=== PATIENT | male | born 2000 | race Caucasian/White ===

== ENCOUNTER 2022-08-02 03:35 | Day surgery (SDC) | payer OTHER, SELFPAY ==
[2022-08-02] VITALS (25 sets, daily range): BP systolic 113–160; BP diastolic 62–94; PULSE 68–113; RESP 16–20; TEMP 36.7–37.4; O2SAT 96–100; BMI 25.8
--- NOTE | 2022-08-02 04:02 | CRLHL7_ITS ---
For Patients: As a result of the Century Cures Act, medical imaging exams and procedure reports are released immediately into your electronic medical record. You may view this report before your referring provider. If you have questions, please contact your health care provider. INDICATION: Right lower quadrant abdominal pain. COMPARISON: None TECHNIQUE: CT examination of the abdomen and pelvis was performed following the uneventful intravenous administration of 89 cc of Isovue 370. Thin section axial images were obtained from the lung bases through the pubic symphysis. Oral contrast was not administered. Please note that all CT scans at this facility use dose modulation, iterative reconstruction, and/or weight-based dosing when appropriate to reduce radiation dose to as low as reasonably achievable. FINDINGS: LUNG BASES: There is a 3.5 millimeter nodule at the right lung base. A nodule of this size does not generally require follow-up in low risk individuals.The heart size is normal at the lung bases. LIVER/BILIARY SYSTEM:The liver is normal in size and configuration. There is no focal mass and there is no intra- or extra hepatic biliary ductal dilatation.The gall bladder appears normal. ADRENALS: Normal KIDNEYS, URETERS and BLADDER:A few scattered bilateral low-density lesions are noted likely small cysts. No hydronephrosis or hydroureter. The bladder appears normal. SPLEEN:Normal appearance. PANCREAS: Appears normal. RETROPERITONEUM and MESENTERY: There is no mass, adenopathy or aortic aneurysm. GASTROINTESTINAL SYSTEM: Dilated inflamed appendix containing an appendicolith with surrounding inflammatory change and moderate fluid in the pelvis. No collection. No free air. PELVIS: No mass or adenopathy.. OSSEOUS STRUCTURES and ABDOMINAL WALL: There is an age-appropriate appearance of the osseous structures.No significant abdominal wall defect. IMPRESSION: Acute uncomplicated appendicitis. The appendix is dilated and inflamed containing an appendicolith with surrounding inflammatory change and moderate free fluid in the pelvis. No collection or free air. Please note that all CT scans at this facility use dose modulation, iterative reconstruction, and/or weight-based dosing when appropriate to reduce radiation dose to as low as reasonably achievable. Dictated by Jewel Russell MD @ 08/02/2022 4:38:28 AM (Electronically Signed)
--- NOTE | 2022-08-02 04:05 | ED_ITS ---
HPI - General Adult General Chief complaint: Abdominal Pain Stated complaint: Right Side Abdominal Pain Time Seen by Provider: 08/02/22 03:41 Source: patient Mode of arrival: ambulatory History of Present Illness HPI narrative: 22-year-old male with no significant prior medical history presents with a 2 hour history of abdominal pain in the right lower quadrant. Describes pain as constant and achy, improves if he gets up and walks around, worse if he is attempting to fall asleep and un distracted. He states that he looked up signs and symptoms of appendicitis and does feel like the pain is worse when he presses, indicating what he read as guarding. He is mildly nauseated but there has been no vomiting. Last bowel movement was about 10 hours ago, small but no blood. No diarrhea. No abdominal trauma. No dysuria or symptoms of STD. Has not tried taking any medications or any other interventions to help with his symptoms. Has felt a little bloated yesterday but the pain did not start until a few hours ago as stated. Prior history of similar symptoms. Last meal was a bagel at approximately 6:00 p.m.. Past medical history he reports is benign, no major long-term health problems. Denies any use of prescription medications, no allergies. Socially denies intoxication. Surgically he has tolerated a prior tonsillectomy and wisdom tooth extraction without difficulty. Denies family history of anesthesia complications. ROS is notable only for the abdominal symptoms as above, otherwise denies times 15 systems. Related Data Home Medications Medication Instructions Recorded Confirmed No Known Home Medications 08/02/22 08/02/22 Previous Rx's Medication Instructions Recorded hydrocodone 5 mg-acetaminophen 325 1 tab PO Q6H PRN Pain #10 tabs 08/02/22 mg tablet Allergies Allergy/AdvReac Type Severity Reaction Status Date / Time No Known Drug Allergies Allergy Verified 08/02/22 04:08 [facility] Medical History (Updated 08/02/22 @ 08:23 by Claire Hitchcock MD) No significant past medical history Surgical History (Updated 08/02/22 @ 08:17 by Claire Hitchcock MD) H/O wisdom tooth extraction S/P tonsillectomy Social History (Updated 08/02/22 @ 08:18 by Claire Hitchcock MD) Narrative: The patient is a full-time student. He is a senior. He is studying psychology. His family is from [place]. He drinks alcohol occasionally Smoking Status: Never smoker Do you use any of these nicotine containing products: None Second hand tobacco smoke exposure: No How often do you have a drink containing alcohol: never How often do you have six or more drinks on one occasion: Never AUDIT-C Alcohol total score: 0 Non-prescribed substance use: marijuana (any form) Exam Const: Vital Signs, click to edit/add: Vital Signs - 24 hr 08/02/22 03:41 08/02/22 03:35 08/02/22 04:13 Temperature 98.0 F Pulse Rate 92 Pulse Rate [Right Pulse Oximeter] 81 Respiratory Rate 18 18 Blood Pressure 138/70 Blood Pressure [Ri ght Upper Arm] 125/76 Pulse Oximetry 99 99 100 Oxygen Delivery Me thod Room Air 08/02/22 04:32 08/02/22 05:02 08/02/22 06:02 Temperature Pulse Rate 89 99 92 Pulse Rate [Right Pulse Oximeter] Respiratory Rate 18 18 18 Blood Pressure 145/89 H 160/94 H 131/80 Blood Pressure [Ri ght Upper Arm] Pulse Oximetry 98 100 99 Oxygen Delivery Me thod Documenting provider has reviewed patient's vital signs: yes Common normals: no apparent distress General appearance: cooperative Other: Mildly anxious but good historian. HENMT: Common normals: normocephalic Head and scalp: normocephalic Mouth: oral and palatal mucosa normal Throat: posterior oropharynx normal Eye: Common normals: EOMs intact bilaterally General eye: normal appearance of both eyes Neck & C-Spine: Common normals: full ROM and no lymphadenopathy Resp: Common normals: normal respiratory effort, no use of accessory muscles and clear to auscultation bilaterally Effort & inspection: able to speak in complete sentences Auscultation: clear to auscultation bilaterally Cardio: Common normals: regular rate, regular rhythm, S1 normal heart sound, S 2 normal heart sound, no murmurs and peripheral pulses 2+ throughout Rate: regular rate Rhythm: regular rhythm Heart sounds: S1 normal and S2 normal Peripheral pulses: pulses 2+ throughout GI: Common normals: Normal to inspection, nondistended, normoactive bowel sounds present and no hepatosplenomegaly Palpation: no hepatosplenomegaly Other: Soft. Mildly tender to the right lower quadrant only. I do not appreciate rebound tenderness or guarding on initial exam Extremity: Common normals: normal to inspection, normal capillary refill and no pedal edema Neuro: Speech: speech normal Motor exam: strength 5/5 throughout, no tremor noted and no movement abnormalities noted Psych: Attitude: engaged Activity/motor behavior: appropriate eye contact Insight: insight good Judgement: judgment good Skin: Common normals: no rashes or lesions noted General skin exam: no rashes or lesions noted Course Vital Signs Vital signs: Initial Vital Signs Pulse Oximetry 99 08/02/22 03:35 Vital Signs Pulse Oximetry 99 08/02/22 03:35 Temperature 99.3 F 08/02/22 11:42 Pulse Rate 69 08/02/22 11:42 Respiratory Rate 16 08/02/22 11:42 Blood Pressure 122/62 08/02/22 11:42 Pulse Oximetry 98 08/02/22 11:42 Oxygen Delivery Method 08/02/22 11:42 Medical Decision Making MDM Narrative Medical decision making narrative: Differential diagnosis including gastritis, colitis, appendicitis, gas and bloating, irritable bowel. In concern is for appendicitis. Urinalysis recommended, CBC, lipase, comprehensive metabolic panel and CRP. Recommend of the abdomen and pelvis. Will place IV, administer 4 mg of Zofran and 10 mg of oral oxycodone to see if this improves pain. Await CT findings. No initial signs of sepsis,, fever or severe infection. Update: CT clearly showing acute, confirmed with radiology report. Spoke with surgical team, they did not recommend antibiotics. I will begin fluids, NPO, p.r.n. Dilaudid is ordered. Await surgical plan and recommendations, anticipate surgery later this morning. Patient is determined to be low risk for anesthesia and is medically cleared for surgery at this time. No additional perioperative recommendations. Lab Data Lab results reviewed: Yes I reviewed the patient's lab results Labs: Lab Results 08/02/22 08/02/22 08/02/22 Range/Units 04:02 04:11 04:12 WBC 9.68 (4.50-11.00) K/uL RBC 5.02 (4.30-5.90) m/uL Hgb 15.5 (13.5-17.5) gm/dL Hct 43.6 (37.0-53.0) % MCV 87 (80-100) fL MCH 31 (26-34) pg MCHC 36 (32-36) gm/dL RDW Coeff of Skylar 11.8 (11.5-15.5) % Plt Count 218 (140-440) K/uL Neut % (Auto) 72.9 H (42.0-72.0) % Lymph % (Auto) 18.9 L (20-44) % [place] % (Auto) 6.8 (0.0-11.0) % Eos % (Auto) 1.2 (0.0-7.0) % Baso % (Auto) 0.1 (0.0-3.0) % Neut # (Auto) 7.10 H (1.7-7.0) K/uL Lymph # (Auto) 1.80 (0.90-2.90) K/uL [place] # (Auto) 0.70 (0.00-0.90) K/UL Eos # (Auto) 0.12 (0.00-0.50) K/uL Baso # (Auto) 0.01 (0.00-0.30) K/uL Sodium 141 (135-149) mmol/L Potassium 3.5 L (3.6-5.1) mmol/L Chloride 109 (96-114) mmol/L Carbon Dioxide 24 (20-32) mmol/L BUN 16 (5-24) mg/dL Creatinine 0.8 (0.5-1.5) mg/dL Estimated Creat Clear 149.55 Estimated GFR 128 ml/min Glucose 108 (60-115) mg/dL Calcium 9.8 (8.4-10.6) mg/dL Total Bilirubin 0.8 (0.1-1.5) mg/dL AST 24 (12-35) U/L ALT 24 (4-50) U/L Alkaline Phosphatase 57 (40-150) U/L C-Reactive Protein 2.1 H (0.5-1.0) mg/dL Total Protein 7.7 (6.0-8.3) g/dL Albumin 4.9 (3.3-5.0) g/dL Lipase (23-300) U/L Urine Color Yellow (Yellow) Urine Appearance Clear (Clear) Urine pH 8.5 (5.0-8.5) Ur Specific [place] 1.020 (1.000-1.030) Urine Protein Negative (Negative) Urine Glucose (UA) Negative (Negative) Urine Ketones Negative (Negative) Urine Blood Negative (Negative) Urine Nitrite Negative (Negative) Urine Bilirubin Negative (Negative) Urine Urobilinogen 1.0 (0.2-1.0) Ur Leukocyte Esterase Negative (Negative) SARS-CoV-2 (PCR) (Negative) 08/02/22 08/02/22 Range/Units 04:12 04:13 WBC (4.50-11.00) K/uL RBC (4.30-5.90) m/uL Hgb (13.5-17.5) gm/dL Hct (37.0-53.0) % MCV (80-100) fL MCH (26-34) pg MCHC (32-36) gm/dL RDW Coeff of Skylar (11.5-15.5) % Plt Count (140-440) K/uL Neut % (Auto) (42.0-72.0) % Lymph % (Auto) (20-44) % [place] % (Auto) (0.0-11.0) % Eos % (Auto) (0.0-7.0) % Baso % (Auto) (0.0-3.0) % Neut # (Auto) (1.7-7.0) K/uL Lymph # (Auto) (0.90-2.90) K/uL [place] # (Auto) (0.00-0.90) K/UL Eos # (Auto) (0.00-0.50) K/uL Baso # (Auto) (0.00-0.30) K/uL Sodium (135-149) mmol/L Potassium (3.6-5.1) mmol/L Chloride (96-114) mmol/L Carbon Dioxide (20-32) mmol/L BUN (5-24) mg/dL Creatinine (0.5-1.5) mg/dL Estimated Creat Clear Estimated GFR ml/min Glucose (60-115) mg/dL Calcium (8.4-10.6) mg/dL Total Bilirubin (0.1-1.5) mg/dL AST (12-35) U/L ALT (4-50) U/L Alkaline Phosphatase (40-150) U/L C-Reactive Protein (0.5-1.0) mg/dL Total Protein (6.0-8.3) g/dL Albumin (3.3-5.0) g/dL Lipase 77 (23-300) U/L Urine Color (Yellow) Urine Appearance (Clear) Urine pH (5.0-8.5) Ur Specific [place] (1.000-1.030) Urine Protein (Negative) Urine Glucose (UA) (Negative) Urine Ketones (Negative) Urine Blood (Negative) Urine Nitrite (Negative) Urine Bilirubin (Negative) Urine Urobilinogen (0.2-1.0) Ur Leukocyte Esterase (Negative) SARS-CoV-2 (PCR) Negative SARS-CoV-2 (Negative) Imaging Data CT scan - abdomen: My impression: Appendicitis Radiologist's impression: IMPRESSION: Acute uncomplicated appendicitis. The appendix is dilated and inflamed containing an appendicolith with surrounding inflammatory change and moderate free fluid in the pelvis. No collection or free air. Discharge Plan Discharge Activity Level: No strenuous activity Activity Detail: No lifting more than 20 lb for 2 weeks Discharge Diet: Regular
[2022-08-02] MEDS: ONDANSETRON 2 MG/ML inj 4 MG IVP (04:10)
[2022-08-02] MEDS: OXYCODONE 5 MG TABLET 10 MG PO (04:11)
[2022-08-02 04:18] LABS: Basophils Absolute Auto 0.01 K/uL (0.00-0.30); Basophils Percent Auto 0.1 % (0.0-3.0); Eosinophils Absolute Auto 0.12 K/uL (0.00-0.50); Eosinophils Percent Auto 1.2 % (0.0-7.0); Hematocrit 43.6 % (37.0-53.0); Hemoglobin* 15.5 gm/dL (13.5-17.5); Immature Granulocytes Abs Auto 0.01 K/uL (0.00-0.30); Immature Granulocytes Pct Auto 0.1 %; Lymphocytes Percent Auto 18.9 % (20-44); Mean Corpuscular HGB Conc 36 gm/dL (32-36); Mean Corpuscular Hemoglobin 31 pg (26-34); Mean Corpuscular Volume 87 fL (80-100); Monocytes Percent Auto 6.8 % (0.0-11.0); Neutrophils Percent Auto 72.9 % (42.0-72.0); Platelet Count* 218 K/uL (140-440); RDW Coefficient of Variation % 11.8 % (11.5-15.5); Red Blood Count 5.02 m/uL (4.30-5.90); White Blood Count* 9.68 K/uL (4.50-11.00)
[2022-08-02 04:20] LABS: Slide Review Reflex No
[2022-08-02 04:30] LABS: Appearance Urine Clear (Clear); Bilirubin Urine Negative (Negative); Blood Urine Negative (Negative); Color Urine Yellow (Yellow); Glucose Urine Negative (Negative); Ketones Urine Negative (Negative); Leukocyte Esterase Urine Negative (Negative); Nitrite Urine Negative (Negative); Protein Urine Negative (Negative); pH Urine 8.5 (5.0-8.5)
[2022-08-02 04:34] LABS: Albumin* 4.9 g/dL (3.3-5.0); Chloride* 109 mmol/L (96-114); Sodium* 141 mmol/L (135-149)
[2022-08-02 04:35] LABS: Potassium* 3.5 mmol/L (3.6-5.1)
[2022-08-02 04:36] LABS: Lipase* 77 U/L (23-300)
[2022-08-02 04:37] LABS: Aspartate Amino Transferase* 24 U/L (12-35); Bilirubin Total* 0.8 mg/dL (0.1-1.5); Carbon Dioxide* 24 mmol/L (20-32); Creatinine* 0.8 mg/dL (0.5-1.5); Est. Creatinine Clearance* 149.55; Estimated Glomerular Filt Rate 128 ml/min
[2022-08-02 04:38] LABS: Alanine Aminotransferase* 24 U/L (4-50); Alkaline Phosphatase* 57 U/L (40-150); Blood Urea Nitrogen* 16 mg/dL (5-24); Calcium* 9.8 mg/dL (8.4-10.6); Glucose* 108 mg/dL (60-115); Total Protein* 7.7 g/dL (6.0-8.3)
[2022-08-02 04:40] LABS: C Reactive Protein* 2.1 mg/dL (0.5-1.0)
[2022-08-02] MEDS: LACTATED RINGERS 1000 ML 1,000 ML 125 ML IV ×2 (04:50→09:36)
[2022-08-02 05:05] LABS: SARS PCR* Negative SARS-CoV-2 (Negative)
--- NOTE | 2022-08-02 07:32 | ED.NURSE ---
Anesthesia in to see pt.
--- NOTE | 2022-08-02 07:59 | ED.NURSE ---
Dr Hitchcock in to see pt.
--- NOTE | 2022-08-02 08:15 | ED.NURSE ---
Pt to OR
--- NOTE | 2022-08-02 08:17 | PM.GSHP ---
History of Present Illness History of Present Illness Date Seen: 08/02/22 Chief complaint: Right Side Abdominal Pain Narrative: Antionette Arvizu is a 22 year old male who presents to the emergency department with abdominal pain. He states he woke up at 2:00 a.m. yesterday with right lower quadrant pain which was severe. He states when he thinks back that for the past day or so prior to this he had some bloating and discomfort all over his abdomen. He has had nausea but no vomiting. His last bowel movement was yesterday and was normal. He has not had diarrhea. No urinary symptoms. No chest pain or shortness of breath. Movement makes his pain worse. Review of Systems Status of ROS: Reports: 10 or more systems reviewed and unremarkable except as noted in History and below [facility] Medical History (Updated 08/02/22 @ 08:23 by Claire Hitchcock MD) No significant past medical history Surgical History (Updated 08/02/22 @ 08:17 by Claire Hitchcock MD) H/O wisdom tooth extraction S/P tonsillectomy Social History (Updated 08/02/22 @ 08:18 by Claire Hitchcock MD) Narrative: The patient is a full-time student. He is a senior. He is studying psychology. His family is from [place]. He drinks alcohol occasionally Smoking Status: Never smoker Do you use any of these nicotine containing products: None Second hand tobacco smoke exposure: No How often do you have a drink containing alcohol: never How often do you have six or more drinks on one occasion: Never AUDIT-C Alcohol total score: 0 Non-prescribed substance use: marijuana (any form) Meds Home Medications and Allergies Home Medications Medication Instructions Recorded Confirmed Type No Known Home Medications 08/02/22 08/02/22 History Allergies Allergy/AdvReac Type Severity Reaction Status Date / Time No Known Drug Allergies Allergy Verified 08/02/22 04:08 Exam Narrative: Exam Narrative: General appearance: Alert, cooperative, and in no distress Eyes: PERRLA, eye lids clear, and sclera white HENT Head: Normocephalic Ears: External ears normal Pulmonary: Clear to auscultation bilaterally Cardiovascular Heart: Tachycardic but regular. Extremities: warm and well perfused Gastrointestinal Abdominal: Soft. No scars. Mildly distended. Rebound tenderness in right lower quadrant pain Musculoskeletal: Extremities: Upper: Both upper extremities have normal joint range of motion and intact strength. Lower: Both lower extremities have normal joint range of motion and intact strength. Skin: Normal skin color, texture, and turgor. No rashes or lesions. Neurologic: No focal deficits Psychiatric: Alert, oriented, cooperative, normal affect. Const: Vital Signs, click to edit/add: Vital Signs - 24 hr 08/02/22 03:41 08/02/22 03:35 08/02/22 04:13 Temperature 98.0 F Pulse Rate 92 Pulse Rate [Right Pulse Oximeter] 81 Respiratory Rate 18 18 Blood Pressure 138/70 Blood Pressure [Ri ght Upper Arm] 125/76 Pulse Oximetry 99 99 100 Oxygen Delivery Me thod Room Air 08/02/22 04:32 08/02/22 05:02 08/02/22 06:02 Temperature Pulse Rate 89 99 92 Pulse Rate [Right Pulse Oximeter] Respiratory Rate 18 18 18 Blood Pressure 145/89 H 160/94 H 131/80 Blood Pressure [Ri ght Upper Arm] Pulse Oximetry 98 100 99 Oxygen Delivery Me thod 08/02/22 06:03 08/02/22 06:30 08/02/22 06:32 Temperature Pulse Rate 99 108 H 106 H Pulse Rate [Right Pulse Oximeter] Respiratory Rate Blood Pressure 128/74 Blood Pressure [Ri ght Upper Arm] Pulse Oximetry 99 99 98 Oxygen Delivery Me thod 08/02/22 07:00 08/02/22 07:02 08/02/22 07:30 Temperature 98.9 F Pulse Rate 113 H 109 H 113 H Pulse Rate [Right Pulse Oximeter] Respiratory Rate 18 Blood Pressure 121/70 Blood Pressure [Ri ght Upper Arm] Pulse Oximetry 99 98 99 Oxygen Delivery Me thod Results Results Labs: White blood cell count is normal with a left shift. Mildly hypokalemic with a potassium of 3.5 CRP 2.[address] COVID negative CT scan - chest: report reviewed and image reviewed Additional studies: CT scan of the abdomen reveals acute appendicitis with a large appendicolith noted. Assessment and Plan Assessment and plan (1) Appendicitis: Status: Acute Plan The patient is a 22-year-old male with acute appendicitis. We discussed that appendectomy is the preferred treatment for this. This can most often be done laparoscopically. We discussed risks and benefits of the procedure including but not limited to bleeding, need for conversion to open, risk of injury to other structures, need for possible bowel resection, and abscess formation. The patient understands that the risk of abscess is higher if the appendix is perforated. For that reason, we generally keep patient is in the hospital on IV antibiotics until vital signs and white blood cell count had normalized. We also discussed recovery including 2 weeks of lifting restrictions. He is agreeable to proceed will plan on surgery urgently this morning.
[2022-08-02] MEDS: CEFAZOLIN 2 GM INJ IVP (08:19)
--- NOTE | 2022-08-02 08:24 | P.GSOP_ITS ---
Operative Note Date of procedure: 08/02/22 Pre-op diagnosis: Acute appendicitis Post-op diagnosis: Same Type of Procedure: Laparoscopic appendectomy Procedure Description: After discussing the risks and benefits of the procedure, the patient signed informed consent.? The operative site was marked and the patient was brought to the operating room and placed on the operating table in supine position.? Care was taken to pad the patient's pressure points.?? The patient was then intubated by anesthesia.?? The operative site was then prepped and draped in the usual s terile fashion.? A time-out was then performed. Entrance to the abdomen was obtained via a 5 mm optical trocar in the left upper quadrant. The abdomen was insufflated and briefly surveyed for any signs of injury. There were none. A 12 mm port was placed inferior to the umbilicus as well as a 5 mm port in the left lower quadrant. Both were done under direct vision. The patient was then placed in Trendelenburg position with the right side up. The small bowel was gently moved out of the way and the appendix was in view. A small amount of dissection was necessary to free the appendix from the surrounding pelvic attachments. The appendix was grasped and pulled into view. A mesenteric window was created between the base of the appendix and the mesoappendix. A vascular load stapler was used to divide the mesoappendix. An Endo-EARLE purple load stapler was then used to transect the appendix at its base. The staple lines were inspected for bleeding. There was none. The appendix was then removed from the abdomen using an Endo-Catch bag. The specimen was sent to pathology. The abdomen was examined and a small amount of clear fluid was suctioned from the pelvis. There was no purulence noted. The ports were then removed and the abdomen desufflated. The 12 mm port site fascia was closed with 0 Vicryl. The skin was then closed with absorbable subcuticular suture. Sterile dressings were then applied. Instrument sponge and needle counts were correct at the end of the case. The patient was then woken and transported to the PACU in stable condition. The patient tolerated the procedure well. Indications: The patient is a 22-year-old male with abdominal pain. Workup revealed acute appendicitis. Findings: Acute, non perforated appendicitis Anesthesia: GETA Surgeon: Claire Hitchcock MD Estimated blood loss (mL): 5 Specimen: Appendix Condition: stable Disposition: PACU
[2022-08-02] MEDS: BUPIVACAINE 0.25% 30 ML 10 ML INJECTION (08:39)
[2022-08-02] MEDS: metroNIDAZOLE 500 MG/100 ML PIGGYBACK IVPB (09:15)
--- NOTE | 2022-08-02 09:46 | P.NB_ITS ---
Nerve Block Nerve Block Time Seen by Provider: 09:15 Date Seen: 08/02/22 Type of block requested by surgeon for post-operative analgesia: TAP Side: bilateral Time out performed: Yes Verification of patient name: Yes Verification of date of : Yes Site marking: site marked Name of person performing procedure: Steven Barnett Continuous monitoring Was continuous monitoring of O2 sat, B/P, impression printer, recorded every 15 minutes?: Yes Procedure Checklist: sterile prep, needles and gloves Ultrasound guided. Images saved: Yes Medications given in 5ml increments after negative aspiration: Marcaine %: 0.25 mL: 30 Needle gauge: 20 and Exparel mL: 10 Needle gauge: 20 Patient tolerated procedure well: Yes Additional comments: Injected in 5ml increments after negative aspiration Block Charges Block Charge (with Pro Fee): TAP Bilateral Use of Ultrasound Machine for Block: Yes- US Guidance/pain block
--- NOTE | 2022-08-02 09:47 | W.ANESCHARGE ---
Anesthesia Charges Start Date/Time Anesthesia Start Date: 08/02/22 Anesthesia Start Time: 08:19 Stop Date/Time Anesthesia Stop Date: 08/02/22 Anesthesia Stop Time: 09:26 Summary Emergency: No
== END 2022-08-02 11:46 | disposition home or self-care (01) ==
LOC: ED 06:53 → SS 07:30
PROVIDERS: Emergency Provider Family Medicine; Visit Provider Surgery
PROC: 0DTJ4ZZ Resection of Appendix, Percutaneous Endoscopic Approach (ICD-10-PCS; CPT 44970; principal; 2022-08-02 08:00)
DX: K35.80 Unspecified acute appendicitis (principal)
CPT/HCPCS: 44970; 00840; 36415; 64488; 74177; 76942; 80053; 81003; 83690; 85025; 86140; 87635; 88304; 94761; 99283; 99284; 99285; A9270; C9290; J0131; J0330; J0690; J1100; J1885; J2250; J2405; J2704; J3010; J3490; J7120; Q9967; S0030